=== PATIENT | male | born 1980 | race Caucasian/White ===

== ENCOUNTER 2017-11-01 11:41 | Emergency (ER) | payer MEDICAID ==
[~2017-11-01] VITALS: Ht 180.3 cm; Wt 80.0 kg
[2017-11-01] MEDS ORDERED: ALBU8HFA4 IH (11:50)
[2017-11-01] MEDS ORDERED: ALBU8.5H8 IH (11:50)
[2017-11-01 14:02] VITALS: BP 141/79
== END 2017-11-01 14:14 | disposition home or self-care (01) ==
LOC: EMS 11:45
DX: M60.222 Foreign body granuloma of soft tissue, not elsewhere classified, left upper arm (principal); M60.221 Foreign body granuloma of soft tissue, not elsewhere classified, right upper arm; F11.90 Opioid use, unspecified, uncomplicated; J45.909 Unspecified asthma, uncomplicated; Z76.0 Encounter for issue of repeat prescription
CPT/HCPCS: 99283

== ENCOUNTER 2019-04-16 13:56 | Emergency (ER) | payer MEDICAID ==
[~2019-04-16] VITALS: Ht 180.3 cm; Wt 79.5 kg
[~2019-04-16 13:56] MED LIST: ALBU8HFA4 IH
[2019-04-16 15:52] VITALS: BP 121/69
== END 2019-04-16 15:58 | disposition home or self-care (01) ==
LOC: EMS 13:57
DX: Z11.1 Encounter for screening for respiratory tuberculosis (principal); R76.11 Nonspecific reaction to tuberculin skin test without active tuberculosis; F15.90 Other stimulant use, unspecified, uncomplicated; F11.90 Opioid use, unspecified, uncomplicated; Z79.899 Other long term (current) drug therapy; Z86.19 Personal history of other infectious and parasitic diseases